=== PATIENT | male | born 1975 | race Hispanic/Latino ===

== ENCOUNTER 2023-04-09 16:42 | Emergency (ER) | payer SELFPAY ==
[2023-04-09] MEDS ORDERED: Ketorolac Tromethamine 30 MG/ML VIAL ONE (17:54)
[2023-04-09] MEDS ORDERED: Cyclobenzaprine 10 MG TAB ONE (18:04)
[2023-04-09 18:50] LABS: Bilirubin Negative (Negative); Blood, Urine Negative (Negative); Clarity Clear (Clear); Glucose, Urine (Dipstick) Greater than 1000 mg/dL (Negative); Ketone, Urine Trace mg/dL (Negative); Leukocyte Negative Leu/uL (Negative); Nitrite Negative (Negative); Protein, Urine (Dipstick) Negative (Neg-Trace); pH, Urine 5.5 (5.0-9.0)
== END 2023-04-09 18:30 | disposition home or self-care (01) ==
LOC: ERS 16:42
DX: S30.0XXA Contusion of lower back and pelvis, initial encounter (principal); W18.30XA Fall on same level, unspecified, initial encounter
CPT/HCPCS: 72170; 81003; 96372; J1885